=== PATIENT | female | born 1970 ===

== ENCOUNTER 2019-05-30 09:41 | Emergency (ER) | payer MEDICAID, OTHER ==
[~2019-05-30] VITALS: Ht 177.8 cm; Wt 88.7 kg
--- NOTE | 2019-05-30 09:45 | NUR ---
NO ANSWER FROM TRIAGE
[2019-05-30 09:50] VITALS: BP 126/73
== END 2019-05-30 10:25 | disposition home or self-care (01) ==
LOC: ED 10:19
DX: S63.631A Sprain of interphalangeal joint of left index finger, initial encounter (principal); X58.XXXA Exposure to other specified factors, initial encounter; Y93.67 Activity, basketball; Y92.328 Other athletic field as the place of occurrence of the external cause; Y99.8 Other external cause status
CPT/HCPCS: 99283